=== PATIENT | female | born 1985 | race Caucasian/White ===

== ENCOUNTER 2017-10-14 07:59 | Outpatient (CLI) | payer OTHER | END 2017-10-14 08:20 | disposition home or self-care (01) | LOC: LAB 07:59 | DX: E04.2 Nontoxic multinodular goiter (principal); E55.9 Vitamin D deficiency, unspecified; D50.0 Iron deficiency anemia secondary to blood loss (chronic); R20.9 Unspecified disturbances of skin sensation; R42 Dizziness and giddiness; F41.9 Anxiety disorder, unspecified; M25.50 Pain in unspecified joint ==

== ENCOUNTER 2017-10-15 12:11 | Outpatient (CLI) | payer OTHER | END 2017-10-15 15:02 | disposition home or self-care (01) | LOC: SONOGRAMA 12:11 | DX: E04.2 Nontoxic multinodular goiter (principal) ==

== ENCOUNTER → 2017-12-16 | Outpatient (CLI) | payer OTHER | END | disposition home or self-care (01) | LOC: NUCLEAR 11-20 08:00 | DX: E04.1 Nontoxic single thyroid nodule (principal) | CPT/HCPCS: 78013; A9512 ==

== ENCOUNTER 2018-02-03 21:12 | Emergency (ER) | payer OTHER ==
[~2018-02-03] VITALS: Ht 172.7 cm; Wt 52.2 kg
[2018-02-03] MEDS ORDERED: LEXAPRO5 MG (21:56)
== END 2018-02-04 00:17 | disposition home or self-care (01) ==
LOC: ER 21:12
DX: T78.3XXA Angioneurotic edema, initial encounter (principal); T39.015A Adverse effect of aspirin, initial encounter; Y92.89 Other specified places as the place of occurrence of the external cause